=== PATIENT | female | born 1985 | race Hispanic/Latino ===

== ENCOUNTER 2017-06-20 17:58 | Emergency (ER) | payer SELFPAY | END 2017-06-20 18:50 | disposition home or self-care (01) | LOC: ERS 17:58 | DX: B86 Scabies (principal); F17.210 Nicotine dependence, cigarettes, uncomplicated; F32.9 Major depressive disorder, single episode, unspecified; Z71.6 Tobacco abuse counseling | CPT/HCPCS: 99406 ==

== ENCOUNTER 2021-12-07 19:49 | Emergency (ER) | payer SELFPAY | END 2021-12-07 21:30 | disposition home or self-care (01) | LOC: ERS 19:49 | DX: N64.4 Mastodynia (principal); F17.210 Nicotine dependence, cigarettes, uncomplicated | CPT/HCPCS: 99283 ==

== ENCOUNTER 2021-12-12 17:35 | Emergency (ER) | payer SELFPAY ==
[2021-12-12 19:45] LABS: Hemoglobin 13.3 g/dL (12.0-16.0); Mean Corpuscular HGB CONC 32.3 g/dL (32.0-36.0); Mean Corpuscular Hemoglobin 28.4 pg (27.0-31.0); Mean Platelet Volume 7.9 fL (7.4-10.4); Platelet Count 220 thou/uL (130-400); RBC Distribution Width 12.4 % (11.5-14.5); Red Blood Cell (RBC) Count 4.69 mill/uL (4.20-5.40); White Blood Cell (WBC) Count 3.4 thou/uL (4.8-10.8)
[2021-12-12 20:00] LABS: BHCG - Serum Negative (NEGATIVE); Pregs Control Background? CLEAR/WHITE (CLR/WHITE); Pregs Control Bar Appear? YES (CONTROL BAR)
[2021-12-12 20:02] LABS: Band 5 % (5-11); Lymphocytes 28 % (21-51); MDiff Complete? YES; Monocytes 12 % (0-10); Myelocyte 1 % (0-0); Neutrophil 48 % (42-75); Platelet Morphology Comment Appears Adequate; Polychromasia SLIGHT = 2-3 cells (100X) (0-2/hpf); Reactive Lymphocytes 6 % (0-10)
[2021-12-12 20:03] LABS: ALT (SGPT) 28 U/L (8-55); AST (SGOT) 19 U/L (5-34); Alkaline Phosphatase 57 U/L (40-110); Anion Gap 11 mmol/L (10-20); BUN (Urea Nitrogen) 7 mg/dL (7.0-18.7); Bilirubin, Total 0.2 mg/dL (0.2-1.2); Calc. Creatinine Clearance 0 mL/min (70-130); Calcium 8.8 mg/dL (7.8-10.44); Carbon Dioxide 28 mmol/L (22-29); Chloride 102 mmol/L (98-107); Glucose 81 mg/dL (70-105); Potassium 4.1 mmol/L (3.5-5.1); Sodium 137 mmol/L (136-145)
== END 2021-12-12 22:55 | disposition home or self-care (01) ==
LOC: ERS 17:35
DX: U07.1 COVID-19 (principal); N64.9 Disorder of breast, unspecified; D72.819 Decreased white blood cell count, unspecified; F17.210 Nicotine dependence, cigarettes, uncomplicated
CPT/HCPCS: 36415; 80053; 83605; 84703; 85025; 86140; 87070; 87077; 87186; 87205; U0003; U0005